=== PATIENT | female | born 1995 | race Caucasian/White ===

== ENCOUNTER 2023-02-02 01:57 | Emergency (ER) | payer OTHER ==
--- NOTE | 2023-02-02 02:40 | ED Physician Documentation ---
History of Present Illness - Stated complaint Stated Complaint: R CHEST PX - Chief complaint Chief Complaint: General - History obtained from History obtained from: Patient - Additonal information Additional information: The patient comes to the emergency department chief complaint of burning pain in right lateral breast for the last 3 hours. She states that she has had pains like this on and off ever since she was 17, but she is 6 weeks and states that she has never had it last this long. She denies redness or swelling. No nipple discharge. No skin changes. She states she feels as though there is a little lump under the area. No pain in her axilla. No other complaints at this time. PD PAST MEDICAL HISTORY - Past Medical History Past Medical History: No - Past Surgical History Past Surgical History: No - Present Medications Home Medications: Ambulatory Orders Medication Instructions Recorded Confirmed Pnv No.95/Ferrous Fum/Folic AC 1 tab PO DAILY 02/02/23 02/02/23 [ Tablet] - Allergies Allergies/Adverse Reactions: Allergies Allergy/AdvReac Type Severity Reaction Status Date / Time No Known Drug Allergies Allergy Verified 02/02/23 02:11 - Social History Does the pt smoke?: No Smoking Status: Never smoker Does the pt have substance abuse?: No - POLST Patient has POLST: No PD ED PE NORMAL - Vitals Vital signs reviewed: Yes - General General: Alert and oriented X 3, No acute distress, Well developed/nourished - HEENT HEENT: Atraumatic, PERRL, EOMI, Moist mucous membranes - Neck Neck: Supple, no meningeal sign - Respiratory Respiratory: No respiratory distress - Derm Derm: Normal color, Warm and dry, No rash - Extremities Extremities: No deformity - Neuro Neuro: Alert and oriented X 3 - Psych Psych: Normal mood, Normal affect - Free text exam Free text exam: Normal right breast exam other than some tenderness over the lateral breast. A single, tender, "rubbery" duct is palpable. Good mobility. No axillary lymphadenopathy. No peau d'orange. No nipple discharge or distortion. No areolar changes. Results - Vitals Vitals: Vital Signs - 24 hr 02/02/23 02:07 Temperature 36.1 C L Heart Rate 83 Respiratory 16 Rate Blood Pressure 109/75 O2 Saturation 100 Oxygen O2 Source Room air PD Medical Decision Making - ED course Complexity details: considered differential, d/w patient ED course: I discussed with the patient that I do not find any abnormalities on her breast exam. There is no evidence of breast cancer or of infection at this point in time. We have discussed symptomatic management at home, as well as the usual indications for return. Departure - Departure Disposition: 01 Home, Self Care Clinical Impression: Breast pain, right Condition: Stable Instructions: Benign Conditions Breast, Preg 1st Trimester Coping, Preg Common Questions Comments: Other than some tenderness and a slightly swollen duct, your breast exam is normal. There is no evidence of breast cancer or of an infection at this point in time. You may take Tylenol and use ice and heat to help with some of the discomfort. Please follow-up with your OB as scheduled for care.
[2023-02-02 02:51] VITALS: O2SAT 100
[2023-02-02 03:00] VITALS: BP 110/66
== END 2023-02-02 02:58 | disposition home or self-care (01) ==
LOC: ED 01:57
DX: N64.4 Mastodynia (principal)
CPT/HCPCS: 99281; 99282

== ENCOUNTER 2023-02-08 17:51 | Emergency (ER) | payer OTHER ==
[2023-02-08 18:08] VITALS: BP 124/71; O2SAT 99
[2023-02-08 18:22] LABS: BASOPHILS % (AUTO) 0.3 %; EOSINOPHILS # (AUTO) 0.2 10^3/uL (0.0-0.7); EOSINOPHILS % (AUTO) 2.2 %; HCT - HEMATOCRIT 38.8 % (37.0-47.0); HGB - HEMOGLOBIN 12.9 g/dL (12.0-16.0); LYMPHOCYTES # (AUTO) 2.9 10^3/uL (1.5-3.5); LYMPHOCYTES % (AUTO) 38.8 %; MEAN CORPUSCULAR HGB CONC 33.2 g/dL (32.0-36.0); MEAN CORPUSCULAR VOLUME 84.2 fL (81.0-99.0); MEAN PLATELET VOLUME 8.6 fL (7.9-10.8); MONOCYTES # (AUTO) 0.4 10^3/uL (0.0-1.0); NEUTROPHILS % (AUTO) 53.6 %; PLT - PLATELET COUNT 305 10^3/uL (130-450); RED BLOOD COUNT 4.61 10^6/uL (4.20-5.40); RED CELL DISTRIBUTION WIDTH 12.5 % (12.0-15.0); WHITE BLOOD COUNT 7.4 x10^3/uL (4.8-10.8)
[2023-02-08 18:38] LABS: ALBUMIN 4.5 g/dL (3.2-5.5); BILIRUBIN,TOTAL 0.2 mg/dL (0.2-1.0); CALCIUM 9.5 mg/dL (8.5-10.3); CREATININE 0.8 mg/dL (0.6-1.3); POTASSIUM 3.2 mmol/L (3.5-4.5); TOTAL PROTEIN 6.8 g/dL (6.4-8.9)
--- NOTE | 2023-02-08 18:39 | ED Physician Documentation ---
History of Present Illness - Stated complaint Stated Complaint: BLEEDING/7 WEEKS PREG - Chief complaint Chief Complaint: Abd Pain - Additonal information Additional information: 27-year-old female presents emergency department for evaluation of vaginal spotting/bleeding in the first trimester . Uncertain of last menstrual date but sometime likely in mid November. She does have history of irregular menses. States last night that she noticed some brown discharge after urinating and this afternoon she had some bright red spotting. She endorses some mild cramping. No fevers dysuria urgency or frequency. A1 elective termination of in 2019. Review of Systems Constitutional: denies: Fever Cardiac: reports: Reviewed and negative Respiratory: reports: Reviewed and negative GI: denies: Abdominal Pain : reports: LMP (november), Vaginal bleeding Skin: reports: Reviewed and negative Musculoskeletal: reports: Reviewed and negative PD PAST MEDICAL HISTORY - Past Medical History Past Medical History: Yes - Past Surgical History Past Surgical History: No - Present Medications Home Medications: Ambulatory Orders Medication Instructions Recorded Confirmed Pnv No.95/Ferrous Fum/Folic AC 1 tab PO DAILY 02/02/23 02/08/23 [ Tablet] - Allergies Allergies/Adverse Reactions: Allergies Allergy/AdvReac Type Severity Reaction Status Date / Time No Known Drug Allergies Allergy Verified 02/08/23 18:03 - Social History Does the pt smoke?: No Smoking Status: Never smoker Does the pt drink ETOH?: No Does the pt have substance abuse?: No - Immunizations Immunizations are current?: Yes - POLST Patient has POLST: No PD ED PE NORMAL - General General: Alert and oriented X 3, No acute distress, Well developed/nourished - HEENT HEENT: Atraumatic - Neck Neck: Supple, no meningeal sign - Cardiac Cardiac: RRR, No murmur - Respiratory Respiratory: No respiratory distress, Clear bilaterally - Abdomen Abdomen: Normal bowel sounds, Soft, Non tender (No abdominal or lower pelvic tenderness elicited with percussion or palpation.) - Derm Derm: Normal color, Warm and dry, No rash - Extremities Extremities: No deformity - Neuro Neuro: Alert and oriented X 3 Eye Opening: Spontaneous Motor: Obeys Commands Verbal: Oriented GCS Score: 15 Results - Vitals Vitals: Vital Signs - 24 hr 02/08/23 17:59 Temperature 37 C Heart Rate 98 Respiratory 15 Rate Blood Pressure 124/71 O2 Saturation 99 Oxygen O2 Source Room air - Labs Labs: Laboratory Tests 02/08/23 02/08/23 02/08/23 18:16 18:16 18:16 WBC 7.4 RBC 4.61 Hgb 12.9 Hct 38.8 MCV 84.2 MCH 28.0 MCHC 33.2 RDW 12.5 Plt Count 305 MPV 8.6 Neut # (Auto) 4.0 Lymph # (Auto) 2.9 [place] # (Auto) 0.4 Eos # (Auto) 0.2 Baso # (Auto) 0.0 Absolute Nucleated RBC 0.00 Nucleated RBC % 0.0 Sodium 139 Potassium 3.2 L Chloride 107 Carbon Dioxide 25 Anion Gap 7.0 BUN 9 Creatinine 0.8 Estimated GFR (MDRD) 85 L Glucose 100 Calcium 9.5 Total Bilirubin 0.2 AST 22 ALT 25 Alkaline Phosphatase 64 Total Protein 6.8 Albumin 4.5 Globulin 2.3 Albumin/Globulin Ratio 2.0 Lipase 24 Beta HCG, Quant 7789.4 Blood Type O POSITIVE - Rads (name of study) OB ultrasound Relevant Findings:: Other (per US tech: Suspicious for early failure. Subchorionic bleed 1.5 cm. No heart rate. Irregular gestational sac with no yolk sac. Corpus luteal ovarian cyst 1.6 cm.) PD Medical Decision Making - ED course Complexity details: reviewed results, re-evaluated patient, d/w patient ED course: 19-year-old female presents emergency department for evaluation of vaginal spotting/bleeding in the first trimester . Uncertain of last menstrual period in mid November though. G2, P0 elective A 1. Rh+. Unremarkable hemogram. Chemistry without acute worrisome abnormalities though potassium is mildly low at 3.2. Quant is 7789. OB ultrasound shows a 1.5 cm subchorionic hemorrhage. Questionable pole at 6 weeks though no heart rate seen. Findings are concerning for a early failure. Patient is scheduled to follow-up with english language learner teacher Chasity Romero this week. At that time they can consider repeat hCG testing. Departure - Departure Disposition: 01 Home, Self Care Clinical Impression: Threatened miscarriage in early Subchorionic hemorrhage in first trimester Qualifiers: Fetus number: single or unspecified fetus Qualified Code(s): O41.8X10 - Other specified disorders of amniotic fluid and membranes, first trimester, not gokul licable or unspecified; O46.8X1 - Other antepartum hemorrhage, first trimester Comments: Kenna your labs today in the emergency department did not show any unexpected findings. However the ultrasound is suggestive of early failure. Based on your suspected last menstrual period dates as well as your hormone levels we would typically expect to see a fetus with a heart rate and at this time we do not see that. You do have a subchorionic hemorrhage that measures about 1.5 cm. This is where there is a small amount of bleeding between the uterus and placenta. This can lead to a miscarriage. No further treatment is necessary at this time in the emergency department. However it is very important that you follow-up with Chasity Romero your english language learner teacher as scheduled this week. She will have the ability to see your labs completed today in the emergency department as well as the ultrasound. She can talk to you about further testing if indicated. Reasons to return to the emergency department would be the development of any severe vaginal bleeding such as saturating a pad or tampon every hour for 4 more hours, any fainting episodes, sudden severe chest pain or shortness of air. Forms: PCP List
--- NOTE | 2023-02-08 19:47 | Ultrasound Report ---
PROCEDURE: OB First Trimester w/TV INDICATIONS: bleeding first trimester OUTSIDE/PRIOR DATING DATA: Last menstrual period (LMP): Unknown. LMP-based estimated date of delivery (SUREKHA): Unknown. First dating scan (date and location): 02/08/2023. Estimated date of delivery (SUREKHA) from first dating scan: Not applicable. TECHNIQUE: Real-time scanning was performed of the fetus and maternal pelvic organs, with image documentation. Endovaginal scanning was also performed to better visualize the fetus and maternal ovaries. COMPARISON: None. FINDINGS: Intrauterine gestational sac is present measuring 1.2 cm corresponding to 6 weeks 0 days. A questiona ble pole is present measuring 0.3 cm also corresponding to 6 weeks 0 days. No identified heart tones. Other: No perigestational fluid collection. Small subchorionic hemorrhage is present bruce suring 1.5 cm. Measurement variability in dating: +/- 4 weeks by LMP, +/- 7 days by mean sac diameter (use before 6 weeks gestation if crown-rump length not able to be measured), +/- 5 days by crown-rump length (6-12 weeks gestation). Maternal organs: Ovaries demonstrate a corpus luteal left ovarian cyst as well as a simple right ova ana rosa cyst. IMPRESSION: Gestational sac with questionable pole corresponding to 6 weeks 0 days. No heart tones ar e identified. Recommend correlation of beta hCG levels and short interval imaging follow-up to docume nt progression versus blighted ovum. Reviewed by: Gabriela Bradford MD on 02/08/2023 7:46 PM PST Approved by: Gabriela Bradford MD on 02/08/2023 7:46 PM PST Station ID: [id number]
== END 2023-02-08 19:34 | disposition home or self-care (01) ==
LOC: ED 17:51
DX: O20.0 Threatened abortion (principal); Z3A.00 Weeks of gestation of pregnancy not specified
CPT/HCPCS: 36415; 80053; 83690; 84702; 85025; 86900; 86901; 99283; 99284

== ENCOUNTER 2023-02-09 15:52 | Outpatient (CLI) | payer OTHER | END 2023-02-09 15:53 | disposition home or self-care (01) | LOC: LAB 15:52 | PROVIDERS: ATTEND Nurse Practitioner Obstetrics & Gynecology | DX: O03.9 Complete or unspecified spontaneous abortion without complication (principal) | CPT/HCPCS: 36415; 84702 ==

== ENCOUNTER 2023-04-21 16:00 | Outpatient (CLI) | payer OTHER ==
[2023-04-21 16:18] LABS: HCT - HEMATOCRIT 37.2 % (37.0-47.0); HGB - HEMOGLOBIN 12.4 g/dL (12.0-16.0); MEAN CORPUSCULAR HEMOGLOBIN 27.9 pg (27.0-31.0); MEAN CORPUSCULAR HGB CONC 33.3 g/dL (32.0-36.0); MEAN CORPUSCULAR VOLUME 83.6 fL (81.0-99.0); MEAN PLATELET VOLUME 8.7 fL (7.9-10.8); RED BLOOD COUNT 4.45 10^6/uL (4.20-5.40); RED CELL DISTRIBUTION WIDTH 12.7 % (12.0-15.0); WHITE BLOOD COUNT 5.6 x10^3/uL (4.8-10.8)
[2023-04-21 16:48] LABS: THYROID STIMULATING HORMONE 0.79 uIU/mL (0.34-5.60)
[2023-04-21 16:55] LABS: FERRITIN 19.9 ng/mL (11.0-306.8)
== END 2023-04-21 16:01 | disposition home or self-care (01) ==
LOC: LAB 16:00
PROVIDERS: ATTEND Nurse Practitioner Obstetrics & Gynecology
DX: R42 Dizziness and giddiness (principal)
CPT/HCPCS: 36415; 82607; 82728; 84439; 84443; 85027

== ENCOUNTER 2023-08-11 09:58 | Outpatient (CLI) | payer OTHER | END 2023-08-11 09:59 | disposition home or self-care (01) | LOC: LAB.N 09:58 | PROVIDERS: ATTEND Nurse Practitioner Obstetrics & Gynecology | DX: O36.80X0 Pregnancy with inconclusive fetal viability, not applicable or unspecified (principal) | CPT/HCPCS: 36415; 84702 ==

== ENCOUNTER 2023-08-14 12:31 | Outpatient (CLI) | payer OTHER | END 2023-08-14 12:32 | disposition home or self-care (01) | LOC: LAB.N 12:31 | PROVIDERS: ATTEND Nurse Practitioner Obstetrics & Gynecology | DX: O36.80X0 Pregnancy with inconclusive fetal viability, not applicable or unspecified (principal) | CPT/HCPCS: 36415; 84702 ==

== ENCOUNTER 2023-10-06 13:23 | Outpatient (CLI) | payer OTHER ==
[2023-10-06 17:50] LABS: BASOPHILS % (AUTO) 0.3 %; EOSINOPHILS # (AUTO) 0.2 10^3/uL (0.0-0.7); EOSINOPHILS % (AUTO) 1.5 %; HCT - HEMATOCRIT 34.8 % (37.0-47.0); HGB - HEMOGLOBIN 11.9 g/dL (12.0-16.0); LYMPHOCYTES % (AUTO) 20.5 %; MEAN CORPUSCULAR HEMOGLOBIN 28.7 pg (27.0-31.0); MEAN CORPUSCULAR HGB CONC 34.2 g/dL (32.0-36.0); MEAN CORPUSCULAR VOLUME 83.9 fL (81.0-99.0); MEAN PLATELET VOLUME 9.3 fL (7.9-10.8); MONOCYTES # (AUTO) 0.4 10^3/uL (0.0-1.0); MONOCYTES % (AUTO) 4.5 %; NEUTROPHILS # (AUTO) 7.2 10^3/uL (1.5-6.6); NEUTROPHILS % (AUTO) 72.8 %; PLT - PLATELET COUNT 313 10^3/uL (130-450); RED BLOOD COUNT 4.15 10^6/uL (4.20-5.40); RED CELL DISTRIBUTION WIDTH 13.8 % (12.0-15.0); WHITE BLOOD COUNT 9.8 x10^3/uL (4.8-10.8)
[2023-10-07 07:10] LABS: HBsAG SCREEN Negative (Negative); RPR Non Reactive (Non Reactive)
[2023-10-07 08:11] LABS: HCV AB Non Reactive (Non Reactive); HIV SCREEN 4TH GENERATION Non Reactive (Non Reactive)
[2023-10-07 09:10] LABS: VARICELLA-ZOSTER AB IGG 875 index (Immune >165)
== END 2023-10-06 13:24 | disposition home or self-care (01) ==
LOC: LAB.N 13:23
PROVIDERS: ATTEND Nurse Practitioner Obstetrics & Gynecology
DX: Z36.89 Encounter for other specified antenatal screening (principal)
CPT/HCPCS: 36415; 85025; 86592; 86762; 86787; 86803; 86850; 86900; 86901; 87340; 87389

== ENCOUNTER 2023-11-02 21:29 | Emergency (ER) | payer OTHER ==
[2023-11-02 21:41] VITALS: BP 109/61; O2SAT 100
[2023-11-02 22:10] LABS: BASOPHILS % (AUTO) 0.2 %; EOSINOPHILS # (AUTO) 0.2 10^3/uL (0.0-0.7); EOSINOPHILS % (AUTO) 1.9 %; HCT - HEMATOCRIT 32.7 % (37.0-47.0); HGB - HEMOGLOBIN 11.1 g/dL (12.0-16.0); LYMPHOCYTES # (AUTO) 2.6 10^3/uL (1.5-3.5); LYMPHOCYTES % (AUTO) 27.4 %; MEAN CORPUSCULAR HEMOGLOBIN 28.5 pg (27.0-31.0); MEAN CORPUSCULAR HGB CONC 33.9 g/dL (32.0-36.0); MEAN CORPUSCULAR VOLUME 83.8 fL (81.0-99.0); MEAN PLATELET VOLUME 8.9 fL (7.9-10.8); MONOCYTES # (AUTO) 0.5 10^3/uL (0.0-1.0); MONOCYTES % (AUTO) 5.5 %; NEUTROPHILS # (AUTO) 6.2 10^3/uL (1.5-6.6); NEUTROPHILS % (AUTO) 64.8 %; PLT - PLATELET COUNT 268 10^3/uL (130-450); RED CELL DISTRIBUTION WIDTH 14.1 % (12.0-15.0); WHITE BLOOD COUNT 9.6 x10^3/uL (4.8-10.8)
[2023-11-02] MEDS: ALBUTEROL NEB 2.5 MG/3 ML INH STA (22:10)
--- NOTE | 2023-11-02 22:11 | ED Physician Documentation ---
History of Present Illness - Stated complaint Stated Complaint: SOA - Chief complaint Chief Complaint: Resp - History obtained from History obtained from: Patient - History of Present Illness Timing: Today Pain level max: 0 Pain level now: 0 - Additonal information Additional information: 3, para 0, approximately 17 weeks . History of asthma and seasonal allergies. She states that she has had a feeling of intermittent palpitations over the past few days. She also feels like she cannot take a full breath. Has used inhalers in the past but does not have one currently. No chest pain. No pleuritic chest pain. No vaginal bleeding or discharge. No calf swelling. No calf tenderness. Patient also complains that she has had intermittent palpitations over the past few days as well. No recent travel. Review of Systems Constitutional: denies: Fever, Chills Cardiac: denies: Chest pain / pressure Respiratory: reports: Dyspnea. denies: Hemoptysis, Wheezing GI: denies: Vomiting, Diarrhea Skin: denies: Rash Musculoskeletal: denies: Neck pain, Back pain Neurologic: denies: Headache PD PAST MEDICAL HISTORY - Past Medical History Past Medical History: Yes Respiratory: Asthma - Past Surgical History Past Surgical History: No - Present Medications Home Medications: Ambulatory Orders Medication Instructions Recorded Confirmed Pnv No.95/Ferrous Fum/Folic AC 1 tab PO DAILY 02/02/23 11/02/23 [ Tablet] Albuterol Sulf [Ventolin Hfa 1 - 2 puffs INH Q4HR PRN #1 each 11/02/23 Inhaler] - Allergies Allergies/Adverse Reactions: Allergies Allergy/AdvReac Type Severity Reaction Status Date / Time No Known Drug Allergies Allergy Verified 11/02/23 21:47 - Social History Does the pt smoke?: No Smoking Status: Never smoker Does the pt drink ETOH?: No Does the pt have substance abuse?: No - Immunizations Immunizations are current?: Yes - POLST Patient has POLST: No PD ED PE NORMAL - Vitals Vital signs reviewed: Yes - General General: Alert and oriented X 3, No acute distress - HEENT HEENT: PERRL, Moist mucous membranes - Neck Neck: Supple, no meningeal sign - Cardiac Cardiac: RRR, Strong equal pulses - Respiratory Respiratory: No respiratory distress, Clear bilaterally - Abdomen Abdomen: Soft, Non tender, Non distended - Derm Derm: Warm and dry - Extremities Extremities: No edema, No calf tenderness / cord - Neuro Neuro: Alert and oriented X 3 - Psych Psych: Normal mood, Normal affect Results - Vitals Vitals: Vital Signs - 24 hr 11/02/23 11/02/23 21:34 22:10 Temperature 36.6 C Heart Rate 87 88 Respiratory 18 20 Rate Blood Pressure 109/61 O2 Saturation 100 Oxygen O2 Source Room air - Labs Labs: Laboratory Tests 11/02/23 11/02/23 11/02/23 21:40 22:04 22:04 WBC 9.6 RBC 3.90 L Hgb 11.1 L Hct 32.7 L MCV 83.8 MCH 28.5 MCHC 33.9 RDW 14.1 Plt Count 268 MPV 8.9 Neut # (Auto) 6.2 Lymph # (Auto) 2.6 [place] # (Auto) 0.5 Eos # (Auto) 0.2 Baso # (Auto) 0.0 Absolute Nucleated RBC 0.00 Nucleated RBC % 0.0 Sodium 136 Potassium 3.5 Chloride 108 Carbon Dioxide 23 Anion Gap 5.0 L BUN 7 Creatinine 0.5 L Estimated GFR (MDRD) 147 Glucose 91 Calcium 9.2 Total Bilirubin 0.2 AST 15 ALT 13 Alkaline Phosphatase 44 Total Protein 6.3 L Albumin 3.8 Globulin 2.5 Albumin/Globulin Ratio 1.5 Lipase 24 Nasal Adenovirus (PCR) NOT DETECTED Nasal B. parapertussis DNA (PCR) NOT DETECTED Nasal Coronavir 229E PCR NOT DETECTED Nasal Coronavir HKU1 PCR NOT DETECTED Nasal Coronavir NL63 PCR NOT DETECTED Nasal Coronavir OC43 PCR NOT DETECTED Nasal Enterovir/Rhinovir PCR NOT DETECTED Nasal Influenza B PCR NOT DETECTED Nasal Influenza A PCR NOT DETECTED Nasal Parainfluen 1 PCR NOT DETECTED Nasal Parainfluen 2 PCR NOT DETECTED Nasal Parainfluen 3 PCR NOT DETECTED Nasal Parainfluen 4 PCR NOT DETECTED Nasal RSV (PCR) NOT DETECTED Nasal B.pertussis DNA PCR NOT DETECTED Nasal C.pneumoniae (PCR) NOT DETECTED Prasanna Human Metapneumo PCR NOT DETECTED Nasal M.pneumoniae (PCR) NOT DETECTED Nasal SARS-CoV-2 (PCR) NOT DETECTED PD Medical Decision Making - ED course Complexity details: reviewed results, re-evaluated patient, considered diffe rential, d/w patient ED course: Patient is well-appearing, nontoxic. Afebrile. No hypoxia. No respiratory distress. Bedside ultrasound performed, shows a normal intrauterine , heart rate approximately 154 bpm. Images were shown to the patient. Her subjective dyspnea resolved with albuterol. No acute abnormalities on laboratory testing. We we will have the patient follow-up with her OB for further care. Patient counseled regarding signs and symptoms for which I believe and urgent re-evaluation would be necessary. Patient with good understanding of and agreement to plan and is comfortable going home at this time This document was made in part using voice recognition software. While efforts are made to proofread this document, sound alike and grammatical errors may occur. Departure - Departure Disposition: 01 Home, Self Care Clinical Impression: Dyspnea Qualifiers: Dyspnea type: shortness of breath Qualified Code(s): R06.02 - Shortness of breath Qualifiers: Weeks of gestation: 17 weeks Qualified Code(s): Z3A.17 - 17 weeks gestation of Condition: Good Instructions: ED Dyspnea Shortness of Breath, ED Preg Established Normal Sxs Follow-Up: SEAN SORENSEN CNM [Primary Care Provider] - Prescriptions: Albuterol Sulf [Ventolin Hfa Inhaler] 1 - 2 puffs INH Q4HR PRN #1 each PRN Reason: Shortness Of Air/Wheezing Comments: Your prescriptions were sent to [facility] in [place]. Use the albuterol as needed at home. Please return if you worsen. Please follow-up with your OB for further care. Forms: PCP List Discharge Date/Time: 11/02/23 22:48
[2023-11-02 22:26] LABS: ALBUMIN 3.8 g/dL (3.2-5.5); ALBUMIN/GLOBULIN RATIO 1.5 (1.0-2.2); BILIRUBIN,TOTAL 0.2 mg/dL (0.2-1.0); CALCIUM 9.2 mg/dL (8.5-10.3); CREATININE 0.5 mg/dL (0.6-1.3); POTASSIUM 3.5 mmol/L (3.5-4.5); TOTAL PROTEIN 6.3 g/dL (6.4-8.9)
[2023-11-02 22:38] LABS: B. PARAPERTUSSIS- RESP PCR PAN NOT DETECTED; B. PERTUSSIS- RESP PCR PANEL NOT DETECTED; C. PNEUMONIAE- RESP PCR PANEL NOT DETECTED; CORONAVIRUS 229E-RESP PCR NOT DETECTED; CORONAVIRUS HKU1-RESP PCR NOT DETECTED; CORONAVIRUS NL63-RESP PCR NOT DETECTED; CORONAVIRUS OC43-RESP PCR NOT DETECTED; HUMAN METAPNEUMOVIRUS NOT DETECTED; INFLUENZA A- RESP PCR PANEL NOT DETECTED; INFLUENZA B - RESP PCR PANEL NOT DETECTED; M. PNEUMONIAE- RESP PCR PANEL NOT DETECTED; PARAINFLUENZA VIRUS 1 NOT DETECTED; PARAINFLUENZA VIRUS 2 NOT DETECTED; PARAINFLUENZA VIRUS 3 NOT DETECTED; PARAINFLUENZA VIRUS 4 NOT DETECTED; RHINOVIRUS/ENTEROVIRUS NOT DETECTED; RSV- RESP PCR PANEL NOT DETECTED; SARS-CoV-2 -RESP PCR PANEL NOT DETECTED
== END 2023-11-02 22:48 | disposition home or self-care (01) ==
LOC: ED 21:29
DX: O26.892 Other specified pregnancy related conditions, second trimester (principal); R06.02 Shortness of breath; Z3A.17 17 weeks gestation of pregnancy; Z20.818 Contact with and (suspected) exposure to other bacterial communicable diseases; Z20.822 Contact with and (suspected) exposure to COVID-19; Z20.828 Contact with and (suspected) exposure to other viral communicable diseases
CPT/HCPCS: 36415; 80053; 83690; 85025; 87633; 94640; 99283; 99284

== ENCOUNTER 2023-12-01 16:32 | Outpatient (CLI) | payer OTHER ==
--- NOTE | 2023-12-04 13:35 | Ultrasound Report ---
PROCEDURE: OB Anatomy Scan INDICATIONS: SUPERVISION OF OUTSIDE/PRIOR DATING DATA: Last menstrual period (LMP): 07/04/2022. LMP-based estimated date of delivery (SUREKHA): 04/10/2024. First dating scan (date and location): 09/08/2023. Estimated date of delivery (SUREKHA) from first dating scan: 04/13/2024. The below data below was generated using the working SUREKHA of 04/10/2024 TECHNIQUE: Ultrasound of the gravid uterus was performed and recorded. COMPARISON: None. FINDINGS: General: A single live intrauterine gestation is present. Presentation: Breech Placenta: Placental position is posterior without previa. Amniotic fluid index: 11.5 cm, 20 percentile for gestational age. heart rate: 155 beats per minute. Maternal cervical canal: 3.9 cm long; normal length is 2.5 cm or more. biometrics: Biparietal diameter: 4.7 cm, 20 week 3 day, 18.3 percentile Head circumference: 18.4 cm, 20 week 6 day, 20.7 percentile Abdominal circumference: 15.8 cm, 21 week 0 day, 31.7 percentile Femur length: 3.4 cm, 20 week 6 day, 26.3 percentile Estimated gestational age by working dates: 21 week 2 day Composite gestational age by current ultrasound: 20 week 5 day Estimated weight and percentile: 383.7 g, 24.7 percentile Measurement variability in biometric dating: +/- 10 days from 12-20 weeks gestation, +/- 2 weeks from 20-30 weeks gestation, +/- 3 weeks at 30 weeks gestation or more. Anatomic survey: Neuro: Ventricles are non-dilated at less than 10 mm. Cisterna magna is normal at 3-11 mm. Cerebel lum is normal in size and morphology. Nuchal skin fold: Normal at less than 6 mm between 14-20 weeks gestational age. Face: Nose and lips, facial profile are normal. Spine: No evidence for spina bifida. Heart: 4-chambered heart is present, with normal ventricular outflow tracts. Diaphragm: Diaphragm is intact. Stomach: Left-sided stomach is present. Kidneys: No hydronephrosis. Normal is less than 5 mm in 2nd trimester, less than 7 mm in 3rd trimester. Cord: 3-vessel cord has orthotopic insertion. Bladder: Normal in size. Extremities: All 4 extremities identified. Other: Not applicable. IMPRESSION: Single live intrauterine consistent with 20 week 5 day gestation by current ultrasound. Normal anatomic survey Reviewed by: Petar Guzman MD on 12/04/2023 12:33 PM AKMENDY Approved by: Petar Guzman MD on 12/04/2023 12:33 PM AKMENDY Station ID: [id number]
== END 2023-12-01 16:33 | disposition home or self-care (01) ==
LOC: DI 16:32
PROVIDERS: ATTEND Nurse Practitioner Obstetrics & Gynecology
DX: Z34.02 Encounter for supervision of normal first pregnancy, second trimester (principal); Z36.89 Encounter for other specified antenatal screening

== ENCOUNTER 2024-04-08 08:44 | Inpatient (IN) ==
[2024-04-08] MEDS ORDERED: LABETALOL 20 MG/4 ML SYRINGE IVP PRN ×3 (09:22)
[2024-04-08] MEDS ORDERED: CARBOPROST TROMETHAMINE 250 MCG/ML VIAL IM PRN (09:22)
[2024-04-08] MEDS ORDERED: OXYTOCIN 10 UNIT/ML VIAL IM PRN (09:22)
[2024-04-08] MEDS ORDERED: OXYTOCIN/SODIUM CHLORIDE 500 ML IV PRN (09:22)
[2024-04-08] MEDS ORDERED: METHYLERGONOVINE 0.2 MG/ML VIAL IM PRN (09:22)
[2024-04-08] MEDS ORDERED: LACTATED RINGERS 1,000 ML IV PRN (09:22)
[2024-04-08] MEDS ORDERED: TRANEXAMIC ACID IN NACL 1,000 MG/100 ML BAG IV PRN (09:22)
[2024-04-08] MEDS ORDERED: miSOPROStoL 200 MCG TABLET BC PRN (09:22)
[2024-04-08] MEDS ORDERED: hydrALAZINE INJ 20 MG/ML VIAL IVP PRN ×2 (09:22)
[2024-04-08] MEDS ORDERED: SODIUM CHLORIDE FLUSH 0.9% 10 ML SYRINGE IVP PRN (09:22)
[2024-04-08] MEDS ORDERED: lidocaine 1% 20 ML MDV ID PRN (09:22)
[2024-04-08] MEDS ORDERED: NIFEdipine 10 MG CAPSULE PO PRN (09:22)
--- NOTE | 2024-04-08 09:26 | HISTORY & PHYSICAL EXAMINATION ---
Admit History Smoking Status: Never smoker Other Maternal History Other Maternal History: HPI: This 28 yo @ 39+5 weeks by LMP and confirmed by 9+2 week ultrasound. She was able to get sleep last night but the pain woke her up and they continued to become stronger and closer together. Upon arrival her cervical exam was deferred as her last clinic exam was 1.5cm and she had not been shane. She has been vertex with intact membranes. She ambulated x2 hours and continue to contract but her cervix was unchanged. We reviewed management options at length and patient desires induction of labor. She has been a patient of [facility] care since 24.5 weeks when she transferred from [facility] for continuity of midwifery care. Her which has remained uncomplicated with the exception of significant iron deficiency anemia. ROS: No Headache, visual changes or right upper quadrant abdominal pain. Denies significant N/V. Denies urinary urgency or dysuria. All other symptoms reviewed and were negative except per HPI. In the event of an emergency, accepts the administration of blood products. Recent BP: WNL Labs: unremarkable Last u/s EFW: FAS 24.7%, @ 35+6 2948.9 g, 61.4% OB Hx: G1: 2020: TAB G2: 12/2022: SAB G3: Current Medical Hx: Anxiety/depression, anorexia, migraines. Surgical Hx: None Social Hx: Monogamous with male partner. 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 but family does not know they're . Denies current use of alcohol or tobacco, marijuana or other recreational drugs. Reports that she is safe in current relationship. Family Hx: Denies family history of congenital anomalies, Cystic Fibrosis or chromosomal abnormalities. HTN- Mother, Depression- Mother Allergies: NKDA. Kiwi, grass/hay, grass, ragweed, pollen, whaley, molds. Medications: PNV, Lexapro, iron, prn hydoxyzine COURSE LMP: 07/05/2023 SUREKHA by LMP: 04/10/2024 Initial U/S: @ 9.2wks c/w LMP dating FINAL SUREKHA: 04/10/2024 PROBLEMS: - Anemia complicating : FeSO4 initiated with inadequate response to treatment. Iron infusion o -Anxiety: currently feels well controlled on lexapro Pre- Weight: 125 BMI: 23.6 Blood type O+ Rh Positive Antibody Negative CBC: PLT 313 HCT 34.8 HGB 11.9 RUB: Immune VZV: Immune HBsAg NR HepC NR RPR/AB-EIA: NR HIV: NR PAP: 12/2022 WNL GC/CT: 09/08/2023 Negative HSV: denies in self and partner Genetic testing: QUAD 10/22 Normal Covid: received x2; 01/27/2024 Flu: 12/25/2023 FAS: 12/01/2023 WNL Placenta: Posterior, no previa Cord: 3VC HERNANDEZ: 11.5, WNL EFW: 24.7%tile 50gm OGCT: 94 3HR GTT: TDAP: 01/27/2024 Breast Pump: RSV 02/23/2024 3rd trimester PLT 308 HGB 10.3 HCT 30.8 3rd trimester RPR : NR GBS: 03/15/2024 negative Delivery plan: "wait and see approach", considering hypnobirthing. MOD: Anticipate Contraception Physical exam: Normocephalic, atraumatic Abdomen gravid, soft, nontender. EFW 3800 FHR baseline 130's, moderate variability, + accelerations, no decelerations Contractions intermittent, soft uterine resting tone SVE deferred. 1.5cm in clinic, membranes intact Bilateral LE's no edema Mood is good. Assessment: 28 yo @ 39.5 weeks gestation by 9.2 wk U/S Elective induction of labor FHR 130's Cat I GBS NEG Plan: Admit to [facility] for preinduction cervical ripening followed by elective induction of labor Continuous monitoring Jacuzzi PRN. Nitrous oxide PRN. Epidural PRN Maternal Request. Anticipate . Meds/Allgy Home Medications Ambulatory Orders Medication Instructions Recorded Confirmed vit no.95-ferrous 1 tab PO DAILY 02/02/23 04/08/24 fumarate 28 mg-folic acid 800 mcg tablet albuterol sulfate 90 mcg/actuation 1 - 2 puff inhalation Q4HR PRN 11/02/23 04/08/24 aerosol inhaler (Ventolin HFA) Shortness Of Air/Wheezing #1 ea acetaminophen 325 mg tablet 325 mg PO Q6H PRN pain 01/20/24 04/08/24 (Tylenol) escitalopram oxalate 5 mg tablet 5 mg PO QDAY 01/20/24 04/08/24 (Lexapro) ferrous sulfate 325 mg (65 mg 650 mg PO QDAY 01/20/24 04/08/24 iron) tablet hydroxyzine HCl 10 mg tablet 10 mg PO QID PRN nausea and 01/20/24 04/08/24 vomiting Allergies Allergies Allergy/AdvReac Type Severity Reaction Status Date / Time No Known Drug Allergies Allergy Verified 04/08/24 12:40 [facility] Medical History Medical History (Updated 04/08/24 @ 14:48 by Kelli Doss CRNA) Depression with anxiety Iron deficiency anemia Family History Family History (Updated 01/20/24 @ 10:21 by Brenda Lopes MA) Father Left middle cerebral artery stroke Social History Social History Smoking Status: Never smoker Do you vape?: No Do you feel safe in your home environment?: Yes Suffered physical, verbal, emotional, or financial abuse?: No History of Abuse: No POLST Patient has POLST: No Plan for Labor Plan For Labor I expect patient to be DC'd or transferred within 96 hours.: Yes Conclusion/Plan Lab Results 04/08/24 09:10
[2024-04-08 09:30] LABS: BASOPHILS % (AUTO) 0.2 %; EOSINOPHILS # (AUTO) 0.1 10^3/uL (0.0-0.7); EOSINOPHILS % (AUTO) 1.1 %; HCT - HEMATOCRIT 36.2 % (37.0-47.0); HGB - HEMOGLOBIN 11.9 g/dL (12.0-16.0); LYMPHOCYTES # (AUTO) 2.5 10^3/uL (1.5-3.5); LYMPHOCYTES % (AUTO) 18.7 %; MEAN CORPUSCULAR HEMOGLOBIN 28.5 pg (27.0-31.0); MEAN CORPUSCULAR HGB CONC 32.9 g/dL (32.0-36.0); MEAN CORPUSCULAR VOLUME 86.8 fL (81.0-99.0); MEAN PLATELET VOLUME 9.6 fL (7.9-10.8); MONOCYTES # (AUTO) 0.8 10^3/uL (0.0-1.0); MONOCYTES % (AUTO) 5.8 %; NEUTROPHILS # (AUTO) 9.6 10^3/uL (1.5-6.6); NEUTROPHILS % (AUTO) 73.2 %; PLT - PLATELET COUNT 391 10^3/uL (130-450); RED BLOOD COUNT 4.17 10^6/uL (4.20-5.40); RED CELL DISTRIBUTION WIDTH 16.3 % (12.0-15.0); WHITE BLOOD COUNT 13.1 x10^3/uL (4.8-10.8)
[2024-04-08] MEDS ORDERED: miSOPROStoL 100 MCG TABLET ONE (09:54)
[2024-04-08] MEDS: miSOPROStoL 100 MCG TABLET BC SCH (09:59)
[2024-04-08] MEDS ORDERED: miSOPROStoL 100 MCG TABLET VG SCH (10:00)
[2024-04-08] MEDS: SODIUM CHLORIDE FLUSH 0.9% 10 ML SYRINGE IVP SCH (10:02)
[2024-04-08] MEDS: ESCITALOPRAM 10 MG TABLET PO SCH (11:17)
--- NOTE | 2024-04-08 14:13 | PHARMACY PROGRESS NOTE ---
Best Possible Medication History Admit Date and Time: 04/08/24 [id number] Home Medications Medication Instructions Recorded Confirmed Type vit no.95-ferrous 1 tab PO DAILY 02/02/23 04/08/24 History fumarate 28 mg-folic acid 800 mcg tablet albuterol sulfate 90 mcg/actuation 1 - 2 puff inhalation Q4HR PRN 11/02/23 04/08/24 Rx aerosol inhaler (Ventolin HFA) Shortness Of Air/Wheezing #1 ea acetaminophen 325 mg tablet 325 mg PO Q6H PRN pain 01/20/24 04/08/24 History (Tylenol) escitalopram oxalate 5 mg tablet 5 mg PO QDAY 01/20/24 04/08/24 History (Lexapro) ferrous sulfate 325 mg (65 mg 650 mg PO QDAY 01/20/24 04/08/24 History iron) tablet hydroxyzine HCl 10 mg tablet 10 mg PO QID PRN nausea and 01/20/24 04/08/24 History vomiting Processed by: Pharmacy Medications reviewed in ED?: No Medication History completed: Yes Patient Interview: Completed (BY [employer]ACH, MEGHAN) Secondary Source(s): Insurance records [facility] Statement: As the person ultimately responsible for medication therapy, providers are able to order a medication from an existing home medication list in [employer] via the "Reconcile Routine" prior to Confirmation of that medication by technical customer support specialist. Such practice is discouraged except when the physician, in their clinical judgment, deems that a medical need exists for a medication without regard to previous use.
--- NOTE | 2024-04-08 14:49 | ANESTHESIA PROCEDURE NOTE ---
Pre-Anesthesia VS, & Labs Diagnosis Surgical Diagnosis:: Active labor Procedure Procedure: Vaginal delivery Vitals Vital Signs: Temp Pulse Resp BP 36.7 C 106 H 14 116/65 04/08/24 09:02 04/08/24 09:02 04/08/24 09:02 04/08/24 09:02 Height (in): 5 ft 1 in Weight (kg): 69 kg Body Mass Index: 28.7 BMI Classification: Overweight NPO NPO: Other (clear liquids during labor) Is Patient ?: Yes Lab Results Current Lab Results: Laboratory Tests 04/08/24 09:10: WBC 13.1 H, RBC 4.17 L, Hgb 11.9 L, Hct 36.2 L, MCV 86.8, MCH 28.5, MCHC 32.9, RDW 16.3 H, Plt Count 391, MPV 9.6, Neut # (Auto) 9.6 H, Lymph # (Auto) 2.5, [place] # (Auto) 0.8, Eos # (Auto) 0.1, Baso # (Auto) 0.0, Absolute Nucleated RBC 0.00, Nucleated RBC % 0.0, Blood Type O POSITIVE, Antibody Screen NEGATIVE Lab results reviewed: Yes 04/08/24 09:10 Meds/Allgy Home Medications Ambulatory Orders Medication Instructions Recorded Confirmed vit no.95-ferrous 1 tab PO DAILY 02/02/23 04/08/24 fumarate 28 mg-folic acid 800 mcg tablet albuterol sulfate 90 mcg/actuation 1 - 2 puff inhalation Q4HR PRN 11/02/23 04/08/24 aerosol inhaler (Ventolin HFA) Shortness Of Air/Wheezing #1 ea acetaminophen 325 mg tablet 325 mg PO Q6H PRN pain 01/20/24 04/08/24 (Tylenol) escitalopram oxalate 5 mg tablet 5 mg PO QDAY 01/20/24 04/08/24 (Lexapro) ferrous sulfate 325 mg (65 mg 650 mg PO QDAY 01/20/24 04/08/24 iron) tablet hydroxyzine HCl 10 mg tablet 10 mg PO QID PRN nausea and 01/20/24 04/08/24 vomiting Allergies Allergies Allergy/AdvReac Type Severity Reaction Status Date / Time No Known Drug Allergies Allergy Verified 04/08/24 12:40 [facility] Medical History Medical History (Updated 04/08/24 @ 14:48 by Kelli Doss CRNA) Depression with anxiety Iron deficiency anemia Family History Family History (Updated 01/20/24 @ 10:21 by Brenda Lopes MA) Father Left middle cerebral artery stroke Social History Social History Smoking Status: Never smoker Do you vape?: No Do you feel safe in your home environment?: Yes Suffered physical, verbal, emotional, or financial abuse?: No History of Abuse: No POLST Patient has POLST: No Anesthesia Exam (Expanded) Exam General: Alert, Oriented x3 and Cooperative Dental: WNL Mouth Openin Fingerbreadth Neck Mobility: Normal Mallampati classification: II Thyromental Distance: 4-6 cm Plan Plan Anesthesia Type: Epidural Consent for Procedure(s) Verified and Reviewed: Yes Code Status: Attempt Resuscitation ASA Classification ASA classification: 2-Mild systemic disease Is this case an emergency?: Yes
[2024-04-08] MEDS: LACTATED RINGERS 1,000 ML IV PRN (20:20)
--- NOTE | 2024-04-08 20:20 | PROVIDER PROGRESS NOTE ---
Labor Progress Note Labor Progress Note Labor Progress Note/Additional Text: Much more uncomfortable. Many supportive and respectful persons at the bedside. SVE per request. Contractions becoming more intense. Requesting an epidural /-, ruptured (clear). Paco 2-4 minutes, palpating moderately, soft uterine resting tone. Plan: Epidural per maternal request Consider pitocin augmentation based on future cervical assessments and uterine contraction patterns.
[2024-04-08] MEDS ORDERED: LIDOCAINE 2%-EPI 1:100000 20 ML MDV ONE (20:32)
[2024-04-08] MEDS ORDERED: ROPIVACAINE 0.2% 200 MG/100 ML BAG EP ONE (20:32)
[2024-04-08] MEDS ORDERED: ePHEDrine 50 MG/ML VIAL IVP PRN (21:25)
[2024-04-08] MEDS ORDERED: METOCLOPRAMIDE 10 MG/2 ML VIAL IVP PRN (21:25)
[2024-04-08] MEDS ORDERED: NALBUPHINE 10 MG/ML AMP IVP PRN (21:25)
[2024-04-08] MEDS ORDERED: ONDANSETRON 4 MG/2 ML VIAL IVP PRN (21:25)
[2024-04-08] MEDS ORDERED: NALOXONE 0.4 MG/ML VIAL IVP PRN (21:25)
[2024-04-09] MEDS: LACTATED RINGERS 500 ML IV ONE (01:45)
[2024-04-09] MEDS ORDERED: ACETAMINOPHEN 160 MG/5 ML SUSP UDC PO STA (03:30)
[2024-04-09] MEDS: ACETAMINOPHEN 500 MG TABLET PO ONE (03:43)
[2024-04-09] MEDS: ROPIVACAINE 0.2% 200 MG/100 ML BAG EP PRN (05:13)
--- NOTE | 2024-04-09 07:33 | PROVIDER PROGRESS NOTE ---
Labor Progress Note Labor Progress Note Labor Progress Note/Additional Text: S: Patient comfortable with epidural. Mostly sleeping supportive at bedside O:Anterior lip/ 0 station. Grossly ruptured. No distinct urge to push FHT 150-155/ moderate variability, accelerations, intermittent variable decelerations. A: 28 yo @ now 39+6 weeks gestation Labor down as tolerated.
[2024-04-09] MEDS ORDERED: NALOXONE 0.4 MG/ML VIAL IVP PRN (11:51)
[2024-04-09] MEDS ORDERED: OXYTOCIN/SODIUM CHLORIDE 500 ML IV PRN (11:51)
[2024-04-09] MEDS ORDERED: LABETALOL 5 MG/1 ML 20 ML MDV IVP PRN (11:51)
[2024-04-09] MEDS ORDERED: LABETALOL 20 MG/4 ML SYRINGE IVP PRN ×2 (11:51)
[2024-04-09] MEDS ORDERED: NIFEdipine 10 MG CAPSULE PO PRN (11:51)
[2024-04-09] MEDS ORDERED: hydrALAZINE INJ 20 MG/ML VIAL IVP PRN ×2 (11:51)
[2024-04-09] MEDS ORDERED: SIMETHICONE CHEW 80 MG TABLET PO PRN (11:51)
[2024-04-09] MEDS ORDERED: ACETAMINOPHEN 325 MG TABLET PO PRN (11:55)
[2024-04-09] MEDS ORDERED: HYDROXYZINE HCL 10 MG PO PRN (11:55)
--- NOTE | 2024-04-09 11:57 | DELIVERY NOTE ---
Delivery Note Delivery Comments (Free Text/Narrative) Delivery Comments (Free Text/Narrative): This 28 -year-old, @ 39+5 weeks gestation by LMP and confirmed by first trimester ultrasound, presenting for first scheduled term elective induction of labor. GBS negative, no treatment indicated. Induction began with a single dose of misoprostol and her SROM followed. FHR pattern demonstrated 140's baseline in a category I prior to second stage. Normal labor course. Epidural placed upon maternal request. SROM 04/08/2024 @ 1735. She then progressed to complete/complete ready to deliver and second stage began. : Normal spontaneous vaginal delivery of a viable female infant on 04/09/2024 @1113. No nuchal cord. Fifty second body dystocia following delivery of head. The was placed on maternal abdomen, stimulated, dried and placed skin to skin. Apgars 7 & 9 @ 1 & 5 minutes. The umbilical cord was allowed to stop pulsating at which time it was doubly clamped by delivering provider and cut by FOB. 3VC. Cord blood was obtained. Fundal massage and gently cord traction applied for active management of the third stage, placenta delivered spontaneously and intact and appeared normal. EBL 200cc. Placenta was not sent to pathology. Pitocin administered via IV for hemostasis and allowed to run freely. Uterine massage was performed until uterus was deemed firm. weight 3535g. Inspection of the perineum noted an a first-degree midline laceration. The laceration was repaired under epidural anesthesia with running 3-0 vicryl rapide, repaired in standards fashion under sterile conditions. Upon re- inspection the patient was hemostatic. Uterus again massaged and found to be firm. Needle and sponge counts were correct. Uterine fundus firm and there is no excessive bleeding. Tissues well approximated. Skin to skin initiated. Family bonding well. Both mother and baby are in stable condition.
[2024-04-09] MEDS ORDERED: ALBUTEROL 6.7 GM INHALER INH PRN (12:04)
[2024-04-09] MEDS: IBUPROFEN 600 MG TABLET PO PRN (12:16)
[2024-04-09] MEDS: ACETAMINOPHEN 500 MG TABLET PO PRN (12:16)
[2024-04-09] MEDS ORDERED: hydrOXYzine PAMOATE 25 MG CAPSULE PO PRN (12:20)
[2024-04-09] MEDS: ESCITALOPRAM 10 MG TABLET PO SCH (13:57)
[2024-04-09] MEDS: IRON DEXTRAN 1,000 MG in SODIUM CHLORIDE 0.9% 250 ML IV ONE (15:00)
[2024-04-09] MEDS: diphenhydrAMINE INJ 50 MG/ML VIAL IVP PRN (15:46)
[2024-04-09] MEDS: DOCUSATE SODIUM 100 MG CAPSULE PO SCH (21:36)
[2024-04-10 05:35] VITALS: TEMP 98.2; O2SAT 96
[2024-04-10] MEDS ORDERED: PRENATAL VITAMIN TABLET PO SCH (08:00)
[2024-04-10 08:32] VITALS: BP 113/77
[2024-04-10] MEDS ORDERED: ESCITALOPRAM 10 MG TABLET PO SCH (09:00)
[2024-04-10] MEDS ORDERED: FERROUS SULFATE 325 MG TABLET PO SCH (09:00)
--- NOTE | 2024-04-10 09:00 | Discharge Summary ---
Discharge Summary HOSPITAL COURSE Hospital Course: Date of Admission: 04/08/2024 Date of Discharge: 04/10/2024 Diagnosis on admission: 1. 28 yo @ 39+5 weeks gestation 2. GBS negative 3. Elective term induction of labor Diagnosis on Discharge 1. 28 yo s/p viable female infant apgars 7&9 2. 1st degree perineal laceration with repair 3. unremarkable course 4. desires discharge to home. Physical exam: Normal uterine involution, FF below umbilicus Small/ scant rubra bleeding minimsl perineal discomfort. Bilateral LE's no edema Mood is good. Brief History: She is a patient of [facility] who presented on 04/08/2024 for scheduled induction of labor. She received misoprostol 50mcg BC x one dose, SROM @ 04/08/2024 @ 1735 followed by vaginal delivery 04/09/2024 @ 1113 without further intervention. She had an adequate epidural. She spontaneously delivered a viable female apgars 7 and 9 at 1 and 5 minutes respectively.. EBL 200 ml. First degree laceration with repair. weight: 3535g. She has been doing well in her course. She is ambulating and tolerating a regular diet. She is urinating without difficulty and her lochia is normal. Her pain is well controlled without narcotic management. She will be discharged to home today on day 1 and encouraged OTC IBU, tylenol and stool softeners PRN. She intends to follow up with [facility] in 1 week for telehealth. She has been given precautions to call if she has any new or worsening sx such as fevers, chills, abdominal pain, increasing bleeding, or foul smelling vaginal lochia. preeclamptic precautions reviewed as well. ALLERGIES Allergies Allergy/AdvReac Type Severity Reaction Status Date / Time iron dextran complex Allergy Severe Anaphylaxis Verified 04/10/24 06:05 MEDICATIONS Ambulatory Orders Medication Instructions Recorded Confirmed vit no.95-ferrous 1 tab PO DAILY 02/02/23 04/08/24 fumarate 28 mg-folic acid 800 mcg tablet albuterol sulfate 90 mcg/actuation 1 - 2 puff inhalation Q4HR PRN 11/02/23 04/08/24 aerosol inhaler (Ventolin HFA) Shortness Of Air/Wheezing #1 ea acetaminophen 325 mg tablet 325 mg PO Q6H PRN pain 01/20/24 04/08/24 (Tylenol) ferrous sulfate 325 mg (65 mg 650 mg PO QDAY 01/20/24 04/08/24 iron) tablet hydroxyzine HCl 10 mg tablet 10 mg PO QID PRN nausea and 01/20/24 04/08/24 vomiting escitalopram oxalate 5 mg tablet 5 mg PO QDAY #90 tabs 04/10/24 (Lexapro) LABS 04/08/24 09:10 QUALITY (Female Hip Fx Only) Was patient sent home on osteoporosis medication?: No TIME SPENT Time Spent in Discharge (Minutes): 20 Discharge Plan Discharge Prescriptions: No Action escitalopram oxalate [Lexapro] 5 mg tablet 5 mg PO QDAY Qty: 90 4RF PNV cmb#95-ferrous fumarate-FA 1 EACH tablet 1 tab PO DAILY albuterol sulfate [Ventolin HFA] 200 PUFFS/18 GM HFA aerosol inhaler 1 - 2 puff inhalation Q4HR PRN (Reason: Shortness Of Air/Wheezing) Qty: 1 0RF ferrous sulfate 325 mg (65 mg iron) tablet 650 mg PO QDAY acetaminophen [Tylenol] 325 mg tablet 325 mg PO Q6H PRN (Reason: pain) hydroxyzine HCl 10 mg tablet 10 mg PO QID PRN (Reason: nausea and vomiting) Print Language: Armenian
--- NOTE | 2024-04-10 18:37 | Labor Flowsheet ---
Labor Flowsheet Datetime Report Generated by CPN: 04/10/2024 18:36 Datetime: 04/10/2024 08:32 VITAL SIGNS NBP Sys/Inocencia/Mean (mmHg): 113 : 77 : 86 Pulse: 71 Datetime: 04/09/2024 16:00 SpO2 (%): 99 Datetime: 04/09/2024 14:30 Stage of : Datetime: 04/09/2024 13:51 LaborFlag: Labor Datetime: 04/09/2024 11:45 Temperature (C): 36.9 Datetime: 04/09/2024 11:30 Stage 2 Comments: 200 blood loss - 1st degree orly, superficial abrasions Datetime: 04/09/2024 11:10 UTERINE ACTIVITY Monitor Mode: External Frequency (min): 3-5 Quality: Strong Duration (sec): 40-70 Pattern: Normal: <= 5 Contractions in 10 Minutes Resting Tone (Palpate): Relaxed ASSESSMENT A Monitor Mode: External US FHR Baseline Rate : 150 Variability: Moderate 6-25 bpm Accelerations: None Decelerations: Early; Variable Category: Category II Datetime: 04/09/2024 10:34 Patient Position/Activity: HOB Lowered; Left Tilt Datetime: 04/09/2024 09:35 STAGE 2 Pushing: Coached on Pushing Pushing Position: Pushing with Contractions Pushing Progress: Descent with Pushing; Caput Noted Datetime: 04/09/2024 09:27 I/O Interventions: Watson Discontinued Patient Care Comments: 150ml UO Datetime: 04/09/2024 08:00 Oxygen Method: Room Air Datetime: 04/09/2024 07:02 FHR Baseline Changes: No Baseline Change PAIN Pain Scale: 2 Pain Presence: Intermittent Pain Type: Pressure Pain Location: Perineum Pain Goal: 2 Pain Relief Measures: Epidural Given Pain Coping: Talking Through Contractions Comfort Measures: Breathing/Relaxation; Family Support Datetime: 04/09/2024 07:01 Respirations: 16 Datetime: 04/09/2024 06:23 Monitor Interventions for UA: [place] Adjusted Actions for Decelerations: Sterile Vaginal Exam VAGINAL EXAM Dilatation (cm): 9.8 Effacement (%): 100 Station: 0 Exam by: santos Vaginal Bleeding: Normal Show Cervix, Consistency: Soft Cervix, Position: Anterior Vaginal Exam Comments: anterior lip Datetime: 04/09/2024 06:00 Temperature Route: Oral Datetime: 04/09/2024 05:34 Pain Assessment Comments: rectal pressure Datetime: 04/09/2024 05:22 TEACHING Instructional Method: Verbal Plan of Care: Plan of Care Discussed; Vaginal Delivery Teaching Comments: pushing when complete Datetime: 04/09/2024 04:45 Provider Reviewed Strip: Yes COMMUNICATION Communication: RN at Bedside; RN Reviewed Strip; Provider at Bedside Provider Notified (Name): Koki Munguiat Notification Reason: Status Communication Comments: notified of FHR arrythmia audible on monitor Datetime: 04/09/2024 03:09 PATIENT CARE IV/Blood Work: IV Infusing per Order Datetime: 04/09/2024 02:18 Amniotic Fluid Color: Clear Amniotic Fluid Amount: Scant Amniotic Fluid Odor: Normal Datetime: 04/09/2024 00:04 Contraction Comments: coupling Datetime: 04/08/2024 21:20 Epidural Procedure Other: Pump Started Anesthesia Level Check: T9 Datetime: 04/08/2024 20:48 Comments: monitor battery no longer charged, epidural recently placed, will replace EVELIO Anesthesia Comments: test dose Datetime: 04/08/2024 20:30 PROCEDURE TIME OUT Procedure Type: verbal Procedure Verify: Correct Patient Identity; Correct Side and Site are Marked; Accurate Procedure Co nsent Form; Agreement on Procedure to be Done; Correct Patient Position ANESTHESIA Anesthesia Plans: JAPANESE INTERPRETER at bedside Epidural Positioning: Sitting Datetime: 04/08/2024 19:46 Membrane Status: Ruptured Membranes Rupture Method: Spontaneous MATERNAL ASSESSMENT Level of Consciousness: Alert DTR's/Clonus: DTRs 1+ Headache: Denies Breath Sounds, Left: Clear and Equal Breath Sounds, Right: Clear and Equal Nausea/Vomiting: Denies RUQ Epigastric Pain: Denies Pain Management: Comfort Measures Datetime: 04/08/2024 18:25 Medication Comments: Nitrous started Datetime: 04/08/2024 12:29 Monitor Interventions for FHR: Ultrasound Adjusted Datetime: 04/08/2024 10:26 Membranes Ruptured Date/Time: 04/08/2024 17:35 Datetime: 04/08/2024 09:59 MEDICATIONS Cervical Ripening Agents: Cytotec @
== END 2024-04-10 13:45 | disposition home or self-care (01) | DRG 807 ==
LOC: WFO 08:44 → FBP 09:15
PROVIDERS: ADMIT Nurse Practitioner; ATTEND Nurse Practitioner